=== PATIENT | female | born 1970 | race Caucasian/White ===

== ENCOUNTER 2023-03-27 12:16 | Emergency (ER) | payer OTHER, SELFPAY ==
[2023-03-27 12:14] VITALS: BP 130/85; PULSE 77; RESP 18; TEMP 36.7; O2SAT 100
--- NOTE | 2023-03-27 12:15 | DI.CT_ITS ---
Exam(s) CT THORACIC SPINE WO EXAM: CT THORACIC SPINE WO CLINICAL HISTORY: head injury, low c spine high t spine TTP. TECHNIQUE: Imaging Protocol: Axial computed tomography images with coronal and sagittal reformatted images were created and reviewed. 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 There are no fractures in the thoracic vertebrae. No significant soft tissue findings. IMPRESSION: There is an acute fracture of C7 spinous process which extends into the bilateral posterior laminae.. RADIATION DOSE DELIVERED: Total DLP DATA REPOSITORY: All CT scans at this facility are submitted to the National Radiology Data Registry (NRDR) Dose Index Registry (DIR) with the [employer] ([employer]). RADIATION OPTIMIZATION: All CT scans at this facility use at least one of these dose optimization te chniques: automated exposure control; mA and/or kV adjustment per patient size (includes targeted exa ms where dose is matched to clinical indication); or iterative reconstruction.
--- NOTE | 2023-03-27 12:15 | DI.CT_ITS ---
Exam(s) CT HEAD CERVICAL SPINE WO EXAM: CT HEAD CERVICAL SPINE WO CLINICAL HISTORY: head injury, neck pain. TECHNIQUE: Imaging Protocol: Axial computed tomography images with coronal and sagittal reformatted images were created and reviewed COMPARISON: No exams were available for comparison FINDINGS: BRAIN: There are lytic lesions in the central right side of the skull base involving the clivus-basiocciput and suspicious for metastatic disease. Also appears to be involvement left of center in the C1 level . There is no evidence of intracranial hemorrhage, mass effect, or shift of midline structures. There are no extra-axial fluid collections. The ventricles are not enlarged or shifted and there is no blo od within the ventricular system nor within the basal cisterns. CERVICAL SPINE: There is a mildly distracted fracture at the base of the spinous process of C7, extending across the midline. There is approximately 3-4 millimeters distance between the fracture fragments. No other a cute appearing vertebral fractures identified. However there appears to be lytic involvement of the left side of the spinous process of C2 Disc spaces exhibit normal height. No listhesis. Some mild degenerative changes in the facet joints but no facet malalignment. . IMPRESSION: Although there are no acute intracranial findings, there are concerning lytic lesions in the skull ba se as described above consistent with probable metastatic bone disease versus is primary bone maligna ncy such as myeloma. There is a distracted fracture of the base of the C7 spinous process. There are lytic lesions in the C1 and C2 vertebral bodies. At C1 level this is left-sided. At the C 2 level this is in the left spine part of the spinous process. RADIATION DOSE DELIVERED: Total DLP DATA REPOSITORY: All CT scans at this facility are submitted to the National Radiology Data Registry (NRDR) Dose Index Registry (DIR) with the [employer] (ACR). RADIATION OPTIMIZATION: All CT scans at this facility use at least one of these dose optimization te chniques: automated exposure control; mA and/or kV adjustment per patient size (includes targeted exa ms where dose is matched to clinical indication); or iterative reconstruction.
--- NOTE | 2023-03-27 12:29 | ED.GENADUL_ITS ---
Discharge Plan Disposition Patient Disposition: Home Condition: Good Discharge Details Clinical Impression: Closed fracture of spinous process of cervical vertebra Primary Care Provider: Unknown,Unknown ED Provider: Sarah Garza Home Meds and New Rx's Prescriptions: No Action No Known Home Meds Discharge Instructions Instructions: Cervical Fracture (ED), Spinous Process Fracture (ED) Additional Instructions: Your CT scan showed: IMPRESSION: Slightly distracted C7 spinous process fracture. Lytic lesions C1, C2 and skull base concerning for metastatic disease versus myeloma. Please wear the collar you were given until told otherwise by a spine doctor. IT IS VERY IMPORTANT THAT YOU FOLLOW UP WITH A SPINE DOCTOR THIS WEEK. To be seen nearby, call [phone] to reach the [facility]. If you wish to be seen somewhere else, call the spine clinic of your choice BUT MAKE SURE YOU ARE SEEN THIS WEEK. Return to the emergency department for new or worsening symptoms including numbness, tingling, weakness, worsening pain, or if you have any other concerns. Medical Decision Making 52yo previously healthy female presenting with neck pain after skiing injury. Fell forward, slid, and then impacted the top of her head which brought her to a stop. + helmet. -LOC. -AC. Low cervical/high thoracic neck pain. Midline tenderness in low thoracic region on exam, otherwise no significant traumatic findings. Normal neurologic exam and no neurologic symptoms. Low suspicion for intrathoracic or intrabdominal injury; will not get labs. No indication of cord injury on exam. Head CT and cervical and thoracic CTs independently reviewed, no intracranial hemmoraghe on my view, agree with radiology reads below with C7 spinous process fracture. 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 Case discussed with Dr. Ng on-call for orthopedics who reviewed the CT imaging; plan for patient to go home in hard collar and followup in spinal clinic within one week. Referral placed for [facility] (unable to make appointment today as it is Tuesday) and patient provided with contact info. She states that she may return home to [facility] and follow up there; the importance of being seen within one week was stressed and she was instructed to call us if she has any difficultly with this so that we can try to facilitate if necessary. Discharged home; discharge instructions including return precautions were reviewed with patient who verbalized understanding. All questions were answered and they are in full agreement with the plan. Imaging Data Radiologic Study: Radiologist's impression: IMPRESSION: Acute fracture of the C7 spinous process, extending into the bilateral posterior lamina. IMPRESSION: No acute intracranial abnormality. Lytic lesions and skull base as described above concerning for metastatic disease versus myeloma. IMPRESSION: Slightly distracted C7 spinous process fracture. Lytic lesions C1, C2 and skull base concerning for metastatic disease versus myeloma. HPI General Mode of arrival: EMS . Date/Time Provider Initiated Documentation: 03/27/23 12:20 . Limitations to Documentation: no limitations . Information obtained by: patient and EMS . HPI Narrative: 52yo previously healthy female presenting with neck pain after skiing injury. Was skiing, fell, landed on her front, and slid over embankment eventually hitting a groundswell/snow with the top of her head. Was helmeted. No LOC. No nubmness, tingling, or weakness. No pain elsewhere. She is otherwise in her usual state of health with no fevers, chills, rash, nausea, vomiting, abdominal pain, chest pain, shortness of breath, vertigo, or other concerns. Related Data Home Medications Medication Instructions Recorded Confirmed Unknown [No Known Home Meds] 03/27/23 03/27/23 Allergies Allergy/AdvReac Type Severity Reaction Status Date / Time No Known Allergies Allergy Unverified 03/27/23 12:20 General Stated Complaint: Trauma SARAH: 3 Review of Systems Narrative: see HPI PFSH All Active Problems (Updated 03/27/23 @ 14:16 by Sarah Garza MD) Closed fracture of spinous process of cervical vertebra (Acute) Social History Smoking/Tobacco Use Status: Never Smoking risk assessment performed?: Yes Alcohol Intake: current Alcohol Intake frequency: a few times a month Substance use type: does not use Housing: house Do you feel safe at home: Yes Do you feel safe in your relationship?: Yes Exam Narrative Exam Narrative: GENERAL: Alert, C-collar in place. SKIN: Warm and well perfused. HEAD: Atraumatic, normocephalic without edema, discoloration or evidence of trauma. Facial bones without deformities or tenderness. EYES: PERRL. No scleral icterus or conjunctival injection. Extraocular muscles intact without nystagmus or diplopia. No proptosis or enophthalmos. NOSE: No discharge. No nasal septal hematoma. MOUTH: No malocclusion or trismus. Moist mucus membranes without blood. NECK: Trachea midline. No discolorations or edema. Neck immobilized in cervical collar. CV: Regular rate and rhythm, Normal s1 and s2. No murmurs, rubs, or gallops. PV: Radial pulses 2+ bilaterally and symmetric. Dorsalis pedis pulses 2+ bilaterally and symmetric. 2+ capillary refill. No extremity edema. CHEST: No abrasions or ecchymosis. Chest symmetric with respirations. No chest wall tenderness. Lungs are clear to auscultation bilaterally. ABDOMEN: No ecchymosis or abrasions. Soft, nondistended, nontender. BACK: No abrasions, skin openings, or ecchymosis. Midline tenderness to low-c-spine and high thoracic tenderness. No step offs. 3cm circular erythema to right buttock, snow removed from the area PELVIC: Pelvis stable, nontender to lateral compression : Normal external genitalia MSK: No gross deformities or discolorations or lesions. Tolerates full range of motion of extremities without tenderness. Neuro: GCS 15. PERRL. EOMI. Fluent speech, no dysarthria. Motor- 5/5 strength symmetric bilateral upper and lower extremities Sensation- Intact to light touch and symmetric multiple dermatomes including upper and lower extremities Gait/station: Normal stance. No truncal ataxia. Steady gait with equal normal steps CRANIAL NERVES: II: Pupils equal and reactive, III, IV, : EOM intact, no gaze preference or deviation, no nystagmus. V: normal sensation in V1, V2, and V3 segments bilaterally VII: no asymmetry, no nasolabial fold flattening VIII: normal hearing to speech IX, X: normal palatal elevation, no uvular deviation XI: Deferrred XII: midline tongue protrusion. Course Vital Signs Vital signs: Vital Signs Temperature 36.7 C 03/27/23 12:14 Pulse 77 03/27/23 12:14 Respiratory Rate 18 03/27/23 12:14 Blood Pressure 130/85 03/27/23 12:14 Pulse Oximetry 100 03/27/23 12:14 Temperature 36.7 C 03/27/23 12:14 Temperature Source Oral 03/27/23 12:14 Pulse 77 03/27/23 12:14 Respiratory Rate 18 03/27/23 12:14 Respiratory Effort Normal 03/27/23 12:18 Blood Pressure 130/85 03/27/23 12:14 Blood Pressure Position Sitting 03/27/23 12:14 Pulse Oximetry 100 03/27/23 12:14 Oxygen Delivery Method Room Air 03/27/23 12:14 Oxygen Flow Rate 0 03/27/23 12:14
--- NOTE | 2023-03-27 13:03 | DI.VRAD_ITS ---
Addendum created by Marcin Montalvo MD on 03/27/2023 1:02:41 PM EST: THIS REPORT CONTAINS FINDINGS THAT MAY BE CRITICAL TO PATIENT CARE. The findings were verbally communicated via telephone conference with ALBERT BACA at 1:02 PM EST on 03/27/2023. The findings were acknowledged and understood. Initial report created on 03/27/2023 1:01:28 PM EST: PROCEDURE INFORMATION: Preliminary report Exam: CT Thoracic Spine Without Contrast Exam date and time: 03/27/2023 12:36 PM Age: 52 years old Clinical indication: Injury or trauma; Blunt trauma (contusions or hematomas); Patient HX: Fall while skiing TECHNIQUE: Imaging protocol: Computed tomography of the thoracic spine without contrast. COMPARISON: None FINDINGS: Bones/joints: Acute fracture of the C7 spinous process, extending into the bilateral posterior lamina. No acute bony injury or malalignment in the visualized thoracic spine. Soft tissues: Unremarkable appearance of the paraspinous soft tissues. IMPRESSION: Acute fracture of the C7 spinous process, extending into the bilateral posterior lamina. The aforementioned findings initiated a critical results communication pathway. An addendum will be issued at the time of clincian notification. Dictated and Authenticated by: Marcin Montalvo MD. Ordering:FLAVIO Smith MD
--- NOTE | 2023-03-27 13:19 | DI.VRAD_ITS ---
Addendum created by Crow Brown MD on 03/27/2023 1:22:22 PM EST: Findings discussed with Dr. Garza on 03/27/2023 at 12:22 p.m. central time. Initial report created on 03/27/2023 1:19:12 PM EST: PROCEDURE INFORMATION: Exam: CT Head Without Contrast Exam date and time: 03/27/2023 12:36 PM Age: 52 years old Clinical indication: Injury or trauma; Blunt trauma (contusions or hematomas); Injury details: Fall skiing TECHNIQUE: Imaging protocol: Computed tomography of the head without contrast. COMPARISON: No relevant prior studies available. FINDINGS: Brain: No midline shift. Ventricles, cisterns, and sulci are normal. No mass, acute infarct, hemorrhage, or extraaxial fluid collection. Cerebral ventricles: No ventriculomegaly. Paranasal sinuses: Visualized sinuses are unremarkable. No fluid levels. Mastoid air cells: Visualized mastoid air cells are well aerated. Bones/joints: Lytic lesion is seen involving the central and right side of the clivus extending to the basiocciput adjacent to the right jugular foramen. No gross soft tissue component on this noncontrast brain CT. No skull fracture seen. Soft tissues: Unremarkable. IMPRESSION: No acute intracranial abnormality. Lytic lesions and skull base as described above concerning for metastatic disease versus myeloma. PROCEDURE INFORMATION: Exam: CT Cervical Spine Without Contrast Exam date and time: 03/27/2023 12:36 PM Age: 52 years old Clinical indication: Injury or trauma; Blunt trauma (contusions or hematomas); Injury details: Fall skiing TECHNIQUE: Imaging protocol: Computed tomography of the cervical spine without contrast. COMPARISON: CT THORACIC SPINE WO 03/27/2023 12:36 PM FINDINGS: Bones/joints: Alignment is normal. Fracture seen through the spinous process of C7. No other fracture is seen. Somewhat expansile lytic lesions are seen in the left lateral portion of C1, right-sided clivus adjacent to the jugular foramen, and right side C2 spinous process. These lesions are not posttraumatic. No significant degenerative change. Lungs: Visualized lung apices are clear. Soft tissues: Unremarkable. IMPRESSION: Slightly distracted C7 spinous process fracture. Lytic lesions C1, C2 and skull base concerning for metastatic disease versus myeloma. Dictated and Authenticated by: Crow Brown MD. Ordering:FLAVIO Smith MD
[2023-03-27] MEDS: Acetaminophen 500 MG TAB 1000 MG PO (13:28)
--- NOTE | 2023-03-27 13:40 | NUR.NOTE ---
Referral faxed to the [facility] for C7 Spinus Process Fracture Dr Garza would like Pt seen within the week
[2023-03-27 14:34] VITALS: O2SAT 99
[2023-03-27 14:36] VITALS: BP 116/64; PULSE 58; O2SAT 99
[2023-03-27 14:41] VITALS: BP 116/64; PULSE 63; RESP 14; O2SAT 99
--- NOTE | 2023-03-28 14:27 | NUR.NOTE ---
[facility] [place] called asking for facesheet on this patient as she is new to them. It was faxed to them; [place]; [facility] [phone]. Nursing Note:
== END 2023-03-27 14:42 | disposition home or self-care (01) ==
PROVIDERS: Emergency Provider Student in an Organized Health Care Education/Training Program
DX: S12.690A Other displaced fracture of seventh cervical vertebra, initial encounter for closed fracture (principal); V00.321A Fall from snow-skis, initial encounter
CPT/HCPCS: 99284; 70450; 72125; 72128